=== PATIENT | female | born 1975 | race Caucasian/White ===

== ENCOUNTER → 2017-05-25 | Outpatient (CLI) | payer BC ==
--- NOTE | 2017-05-27 10:44 | MM ---
Reason for exam: screening (asymptomatic). Last mammogram was performed 2 years and 1 month ago. Physical Findings: A clinical breast exam by your physician is recommended on an annual basis and results should be correlated with mammographic findings. MG 3D Screening Mammo W/Cad Bilateral CC and MLO view(s) were taken. Prior study comparison: April 29, 2015, bilateral MG 3d screening mammo w/cad. February 23, 2013, bilateral digital screening mammo w/CAD. There are scattered fibroglandular densities. 5 x 8mm focal asymmetry in the central, lower right breast at middle depth appears more conspicuous than on priors. ASSESSMENT: Incomplete: need additional imaging evaluation, BI-RAD 0 RECOMMENDATION: Special view mammogram of the right breast. If lesion persists on supplemental views, image directed ultrasound is recommended. [facility] will attempt to contact patient to return for supplemental views and ultrasound if indicated.
== END | disposition home or self-care (01) ==
LOC: RADMAMWWP 08:58
PROVIDERS: ATTEND Family Medicine
DX: Z12.31 Encounter for screening mammogram for malignant neoplasm of breast (principal); D24.1 Benign neoplasm of right breast; D24.2 Benign neoplasm of left breast
CPT/HCPCS: 77063; 77067

== ENCOUNTER → 2017-06-07 | Outpatient (CLI) | payer BC ==
--- NOTE | 2017-06-07 08:41 | MM ---
Reason for exam: additional evaluation requested from abnormal screening. Last mammogram was performed less than 1 month ago. Physical Findings: Nurse did not find any significant physical abnormalities on exam. MG 3D Work Up W/Cad RT Spot compression CC, spot compression MLO, and ML view(s) were taken of the right breast. Prior study comparison: May 25, 2017, bilateral MG 3d screening mammo w/cad. April 29, 2015, bilateral MG 3d screening mammo w/cad. Finding: There is a 7 mm obscured oval mass in the lower quadrant, middle position of the right breast does not go completely away though favor asymmetric tissue. These results were verbally communicated with the patient and result sheet given to the patient on 06/07/17. ASSESSMENT: Incomplete: need additional imaging evaluation, BI-RAD 0 RECOMMENDATION: Ultrasound of the right breast. LUCIA
--- NOTE | 2017-06-07 08:43 | USB ---
Reason for exam: additional evaluation requested from abnormal screening. US Breast Workup Limited RT Right breast ultrasound demonstrates dense tissue pocket 7 o'clock, no other abnormality. These results were verbally communicated with the patient and result sheet given to the patient on 06/07/17. ASSESSMENT: Probably benign, BI-RAD 3 RECOMMENDATION: Follow-up diagnostic mammogram of the right breast in 6 months.
== END | disposition home or self-care (01) ==
LOC: RADMAMWWP 06:59
PROVIDERS: ATTEND Family Medicine
DX: R92.8 Other abnormal and inconclusive findings on diagnostic imaging of breast (principal)
CPT/HCPCS: 77065; 76642; G0279

== ENCOUNTER → 2018-01-13 | Outpatient (CLI) | payer BC ==
--- NOTE | 2018-01-16 09:08 | MM ---
Reason for exam: follow-up at short interval from prior study. Last mammogram was performed 7 months ago. Physical Findings: Nurse did not find any significant physical abnormalities on exam. MG 3D Diag Mammo W/Cad RT CC and MLO view(s) were taken of the right breast. Prior study comparison: June 07, 2017, right breast MG 3d work up w/cad RT. May 25, 2017, bilateral MG 3d screening mammo w/cad. The breast tissue is heterogeneously dense. This may lower the sensitivity of mammography. Focal asymmetry stable from comparison. No significant new findings when compared with previous films. These results were verbally communicated with the patient and result sheet given to the patient on 01/13/18. ASSESSMENT: Benign, BI-RAD 2 RECOMMENDATION: Return to routine screening mammogram schedule for both breasts. Back on schedule.
== END | disposition home or self-care (01) ==
LOC: RADMAMWWP 13:43
PROVIDERS: ATTEND Family Medicine
DX: R92.8 Other abnormal and inconclusive findings on diagnostic imaging of breast (principal)
CPT/HCPCS: 77061; 77065

== ENCOUNTER → 2018-10-30 | Outpatient (CLI) | payer BC ==
--- NOTE | 2018-10-30 18:00 | US ---
EXAMINATION TYPE: US venous doppler duplex LE LT DATE OF EXAM: 10/30/2018 5:40 PM COMPARISON: NONE CLINICAL HISTORY: DVT M79.662 pain in left lower limb. Left leg pain x 9 days. No hx of DVT. Not on t hinners. SIDE PERFORMED: Left TECHNIQUE: The lower extremity deep venous system is examined utilizing real time linear array sonog maci with graded compression, doppler sonography and color-flow sonography. VESSELS IMAGED: External Iliac Vein (EIV) Common Femoral Vein Deep Femoral Vein Greater Saphenous Vein * Femoral Vein Popliteal Vein Small Saphenous Vein * Proximal Calf Veins (* superficial vessels) No evidence of DVT in veins imaged from prox calf veins to EIV. Exam is technically limited due to nolvia dy habitus and swelling. Distal femoral vein is limited in visibility. Left Leg: IMPRESSION: Suboptimal study without convincing evidence of acute DVT on images saved.
== END | disposition home or self-care (01) ==
LOC: RADUSWWP 17:01
PROVIDERS: ATTEND Family Medicine
DX: M79.662 Pain in left lower leg (principal)

== ENCOUNTER 2024-02-09 16:49 | Emergency (ER) | payer BC ==
[2024-02-09 17:00] VITALS: RESP 20; TEMP 98.4
--- NOTE | 2024-02-09 18:17 | ED ---
Skin/Abscess/FB HPI - General Chief complaint: Skin/Abscess/Foreign Body Stated complaint: Food Stuck in Throat Time Seen by Provider: 02/09/24 17:04 Source: patient, RN notes reviewed Mode of arrival: ambulatory Limitations: no limitations - History of Present Illness Initial comments: This is a 48-year-old female presenting with right-sided sore throat x 3 days. Patient states she has "celery stuck in throat" and is unable to clear/remove it. Patient denies difficulty swallowing, continuing oral intake. Denies fever, chills, N/V/D, abdominal pain. Onset/Timin -: days(s) Location: neck Severity scale (1-10): 0 Associated symptoms: denies other symptoms - Related Data Previous Rx's Medication Instructions Recorded Cephalexin [Keflex] 500 mg PO Q12HR 7 Days #14 cap 02/09/24 Allergies Allergy/AdvReac Type Severity Reaction Status Date / Time No Known Allergies Allergy Verified 02/09/24 17:00 Review of Systems ROS Statement: Those systems with pertinent positive or pertinent negative responses have been documented in the HPI. ROS Other: All systems not noted in ROS Statement are negative. Past Medical History Past Medical History: Hypertension Past Surgical History: Section, Cholecystectomy General Exam Limitations: no limitations General appearance: alert, in no apparent distress Head exam: Present: atraumatic, normocephalic, normal inspection Eye exam: Present: normal appearance, PERRL, EOMI. Absent: scleral icterus, conjunctival injection, periorbital swelling ENT exam: Present: normal exam, mucous membranes moist Neck exam: Present: normal inspection, tenderness (Minimal right side neck tenderness with no obvious foreign body palpable). Absent: meningismus, lymphadenopathy Respiratory exam: Present: normal lung sounds bilaterally. Absent: respiratory distress, wheezes, rales, rhonchi, stridor Cardiovascular Exam: Present: regular rate, normal rhythm, normal heart sounds. Absent: systolic murmur, diastolic murmur, rubs, gallop, clicks GI/Abdominal exam: Present: soft, normal bowel sounds. Absent: distended, tenderness, guarding, rebound, rigid Extremities exam: Present: normal inspection, full ROM, normal capillary refill. Absent: tenderness, pedal edema, joint swelling, calf tenderness Back exam: Present: normal inspection Neurological exam: Present: alert, oriented X3, CN II-XII intact Psychiatric exam: Present: normal affect, normal mood Skin exam: Present: warm, dry, intact, normal color. Absent: rash Course Vital Signs 02/09/24 02/09/24 16:51 19:47 Temperature 98.4 F Pulse Rate 104 H 90 Respiratory 20 20 Rate Blood Pressure 151/82 147/87 O2 Sat by Pulse 98 99 Oximetry Medical Decision Making - Medical Decision Making Was pt. sent in by a medical professional or institution (, BEAN, SET UP MACHINIST, urgent care, hospital, or fci...) When possible be specific @ -No Did you speak to anyone other than the patient for history (EMS, parent, family, police, friend...)? What history was obtained from this source @ -No Did you review nursing and triage notes (agree or disagree)? Why? @ -I reviewed and agree with nursing and triage notes Were old charts reviewed (outside hosp., previous admission, EMS record, old EKG, old radiological studies, urgent care reports/EKG's, fci records)? Report findings @ -No old charts were reviewed Differential Diagnosis (chest pain, altered mental status, abdominal pain women, abdominal pain men, vaginal bleeding, weakness, fever, dyspnea, syncope, headache, dizziness, GI bleed, back pain, seizure, CVA, palpatations, mental health, musculoskeletal)? @ -Foreign body in throat, esophageal tear, esophageal varices, strep throat, tonsillitis, this is not an exhaustive list EKG interpreted by me (3pts min.). @ -Not done X-rays interpreted by me (1pt min.). @ -Soft tissue neck x-ray shows no significant abnormality or obvious foreign body. CT interpreted by me (1pt min.). @ -None done U/S interpreted by me (1pt. min.). @ -None done What testing was considered but not performed or refused? (CT, X-rays, U/S, labs)? Why? @ -Advised patient of modified barium swallow study suggested by Dr. Gutiérrez, patient deferred. What meds were considered but not given or refused? Why? @ -None Did you discuss the management of the patient with other professionals (professionals i.e. , BEAN, SET UP MACHINIST, lab, RT, psych nurse, social media director, cemetery manager, teacher, international first officer, rn case management)? Give summary @ -Spoke to Dr. Gutiérrez from gastroenterology who stated that acute intervention will likely not be performed and it most a modified barium swallow study could be performed. Advised patient may have had some esophageal stretching from the celery and that symptoms will resolve without intervention in about 1 week. Was smoking cessation discussed for >3mins.? @ -No Was critical care preformed (if so, how long)? @ -No Were there social determinants of health that impacted care today? How? (Homelessness, low income, unemployed, alcoholism, drug addiction, transportation, low edu. Level, literacy, decrease access to med. care, fpc, rehab)? @ -No Was there de-escalation of care discussed even if they declined (Discuss DNR or withdrawal of care, Hospice)? DNR status @ -No What co-morbidities impacted this encounter? (DM, HTN, Smoking, COPD, CAD, Cancer, CVA, ARF, Chemo, Hep., AIDS, mental health diagnosis, sleep apnea, morbid obesity)? @ -None Was patient admitted / discharged? Hospital course, mention meds given and route, prescriptions, significant lab abnormalities, going to OR and other pertinent info. @ -Soft tissue neck x-ray shows no significant abnormality or obvious foreign body. Spoke to Dr. Gutiérrez from GI for further guidance/recommendation. Keflex sent to pharmacy at the suggestion of Dr. Billy. Undiagnosed new problem with uncertain prognosis? @ -No Drug Therapy requiring intensive monitoring for toxicity (Heparin, Nitro, Insulin, Cardizem)? @ -No Were any procedures done? @ -No Diagnosis/symptom? @ -Esophageal irritation Acute, or Chronic, or Acute on Chronic? @ -Acute Uncomplicated (without systemic symptoms) or Complicated (systemic symptoms)? @ -Uncomplicated Side effects of treatment? @ -No Exacerbation, Progression, or Severe Exacerbation? @ -No Poses a threat to life or bodily function? How? (Chest pain, [place], [place], pneumonia, PE, COPD, DKA, ARF, appy, cholecystitis, CVA, Diverticulitis, Homicidal, Suicidal, threat to staff... and all critical care pts) @ -No Disposition Clinical Impression: Throat pain in adult Disposition: HOME SELF-CARE Condition: Good Prescriptions: Cephalexin [Keflex] 500 mg PO Q12HR 7 Days #14 cap Is patient prescribed a controlled substance at d/c from ED?: No Referrals: Olamide Esquivel DO [Primary Care Provider] - 1-2 days Time of Disposition: 19:10
[2024-02-09 19:48] VITALS: BP 147/87; PULSE 90
--- NOTE | 2024-02-09 20:26 | XR ---
EXAMINATION TYPE: XR soft tissue neck DATE OF EXAM: 02/09/2024 6:22 PM COMPARISON: None CLINICAL INDICATION: Female, 48 years old with history of FB in right throat - celery; [facility] TECHNIQUE: Frontal and lateral views of the spine. FINDINGS: The prevertebral soft tissues are unremarkable. There is no evidence of mass effect or trac heal deviation. No acute osseous abnormality demonstrated. No evidence of subglottic narrowing. IMPRESSION: No significant abnormality identified within the soft tissues of the neck. [facility], , 02/09/2024 8:23 PM
== END 2024-02-09 19:48 | disposition home or self-care (01) ==
LOC: EC 16:49
DX: J02.9 Acute pharyngitis, unspecified (principal)
CPT/HCPCS: 70360; 99283